=== PATIENT | female | born 1960 | race Caucasian/White ===

== ENCOUNTER 2019-02-17 17:41 | Emergency (ER) | payer MEDICAID ==
[~2019-02-17] VITALS: Ht 154.9 cm; Wt 64.9 kg
[2019-02-17 18:23] VITALS: BP 221/113
--- NOTE | 2019-02-17 19:00 | NUR ---
REPORT GIVEN BY ASHA CASTRO
[2019-02-17] MEDS: ENALAPRILAT 2.5 MG/2 ML VIAL IVP ONE (19:01)
--- NOTE | 2019-02-17 19:01 | NUR ---
X RAY AT BEDSIDE
--- NOTE | 2019-02-17 19:08 | NUR ---
pt bib self with c/o occipital left side pain x 3 days upon laying down sudden onset of dizziness today >15 episodes of emesis and dizziness. pain 10/10 at this time. high bp 212/108, md notified. administered meds as ordered,. pt connected to monitor. 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 er md to see the pt. will contiue to monitor . hx--htn, gastritis, frequent urination rx---benazepril 40mg , zantac 150mg, flomax 5mg
--- NOTE | 2019-02-17 19:10 | NUR ---
[facility]
[2019-02-17 19:19] LABS: BASOPHILS # (AUTO) 0.1 K/uL (0.00-0.22); EOSINOPHILS # (AUTO) 0.1 K/uL (0-0.4); EOSINOPHILS % (AUTO) 1.5 % (0.0-4.0); HEMATOCRIT 42.6 % (36-48); HEMOGLOBIN 14.3 g/dL (12.0-16.0); LYMPHOCYTES # (AUTO) 1.6 K/uL (2.5-16.5); LYMPHOCYTES % (AUTO) 29.6 % (20.5-51.1); MEAN CORPUSCULAR HEMOGLOBIN 28 pg (27-31); MEAN CORPUSCULAR HGB CONC 34 g/dL (33-37); MEAN CORPUSCULAR VOLUME 84.3 fL (80-94); MONOCYTES # (AUTO) 0.3 K/uL (0.8-1.0); MONOCYTES % (AUTO) 5.9 % (1.7-9.3); NEUTROPHILS # (AUTO) 3.3 K/uL (1.8-7.7); PLATELET COUNT (AUTO) 198 K/uL (140-450); RED BLOOD CELL COUNT(AUTO) 5.05 MIL/uL (4.20-5.40); RED CELL DISTRIBUTION WIDTH 14.2 % (11.6-13.7); WHITE BLOOD COUNT (AUTO) 5.3 K/uL (4.8-10.8)
[2019-02-17 19:27] LABS: PROTHROMBIN TIME 9.3 secs (10.8-13.4)
[2019-02-17 19:28] LABS: ANION GAP 11.6 (8-16); CARBON DIOXIDE 29.2 mmol/L (21-32); CREATININE 0.6 mg/dL (0.6-1.3); POTASSIUM 3.8 mmol/L (3.5-5.1)
[2019-02-17 19:33] LABS: APPEARANCE,URINE CLEAR (CLEAR); BILIRUBIN,URINE NEGATIVE (NEGATIVE); BLOOD, URINE TRACE-I (NEGATIVE); COLOR,URINE YELLOW (YELLOW); LEUKOCYTE ESTERASE ,URINE NEGATIVE (NEGATIVE); NITRITE, URINE NEGATIVE (NEGATIVE); PH,URINE 7.5 (5.0-9.0); UGLUCOSE NEGATIVE (NEGATIVE)
[2019-02-17 19:34] LABS: ALBUMIN 4.3 g/dL (3.4-5.0); TOTAL BILIRUBIN 0.4 mg/dL (0.0-1.0)
--- NOTE | 2019-02-17 19:50 | NUR ---
PT HAS NAUSEA AND VOMITING. ERMD MADE AWARE
[2019-02-17] MEDS: ONDANSETRON 4 MG/2 ML VIAL IVP ONE (20:07)
--- NOTE | 2019-02-17 20:20 | NUR ---
PT STATES "MY DIZZINESS AND N/V WENT AWAY"
--- NOTE | 2019-02-17 20:49 | NUR ---
ERMD AT BEDSIDE
[2019-02-17 21:10] VITALS: BP 175/94
--- NOTE | 2019-02-17 21:10 | NUR ---
Patient discharged with v/s stable. Written and verbal after care instructions given and explained. Patient alert, oriented and verbalized understanding of instructions. Ambulatory with steady gait. All questions addressed prior to discharge. ID band removed. Patient advised to follow up with PMD for follow up with HTN. Rx of MOTRIN AND ZOFRAN was given. Patient educated on indication of medication including possible reaction and side effects. Opportunity to ask questions provided and answered.
== END 2019-02-17 21:10 | disposition home or self-care (01) ==
LOC: MED 17:41
DX: M54.2 Cervicalgia (principal); R11.2 Nausea with vomiting, unspecified; I10 Essential (primary) hypertension; Z88.1 Allergy status to other antibiotic agents
CPT/HCPCS: 36415; 70450; 71045; 80053; 81003; 81025; 83880; 84484; 85025; 85610; 85730; 93005; 96374; 96375; 99284; J2405; J3490

== ENCOUNTER 2021-01-23 10:25 | Emergency (ER) | payer MEDICAID ==
[~2021-01-23] VITALS: Ht 160 cm; Wt 63.5 kg
[2021-01-23 10:31] VITALS: BP 151/90
--- NOTE | 2021-01-23 10:41 | NUR ---
Pt ambulated to bed 08.
--- NOTE | 2021-01-23 10:50 | NUR ---
EKG PERFORMED AT BEDSIDE. EKG READS SINUS RHYTHM @ 70
--- NOTE | 2021-01-23 10:53 | NUR ---
60 Y/O FEMALE BIB DAUGHTER C/O CHEST PAIN RADIATING TO LEFT ARM/NECK WITH NAUSEA X 4 DAYS. DENIES VOMTING. BP 151/90 AT THIS TIME. DENIES FEVER/CHILLS. PMH: GERD, HTN RX: LISINOPRIL, OMEPRAZOLE ALLERGIES: LEVOFLOXACIN
[2021-01-23] MEDS ORDERED: NITROGLYCERIN 0.4 MG TAB SL ONE (10:55)
[2021-01-23] MEDS ORDERED: ASPIRIN 325 MG TAB PO ONE (10:55)
--- NOTE | 2021-01-23 11:07 | NUR ---
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
--- NOTE | 2021-01-23 11:08 | NUR ---
1ST NITRO GIVEN BP 180/86 HR 76. WILL RE CHECK IN 5 MINUTES.
--- NOTE | 2021-01-23 11:13 | NUR ---
2ND NITRO GIVEN BP 142/82 HR 72. WILL RE CHECK IN 5 MINUTES.
[2021-01-23 11:15] LABS: BASOPHILS # (AUTO) 0.1 K/uL (0.00-0.22); BASOPHILS % (AUTO) 1.8 % (0.0-2.0); EOSINOPHILS # (AUTO) 0.1 K/uL (0-0.4); EOSINOPHILS % (AUTO) 2.9 % (0.0-4.0); HEMATOCRIT 40.2 % (36-48); HEMOGLOBIN 13.6 g/dL (12.0-16.0); LYMPHOCYTES # (AUTO) 2.3 K/uL (2.5-16.5); LYMPHOCYTES % (AUTO) 48.8 % (20.5-51.1); MEAN CORPUSCULAR HEMOGLOBIN 28 pg (27-31); MEAN CORPUSCULAR HGB CONC 34 g/dL (33-37); MEAN CORPUSCULAR VOLUME 81.7 fL (80-94); MONOCYTES # (AUTO) 0.4 K/uL (0.8-1.0); NEUTROPHILS # (AUTO) 1.8 K/uL (1.8-7.7); NEUTROPHILS % (AUTO) 38.5 % (42.2-75.2); PLATELET COUNT (AUTO) 196 K/uL (140-450); RED BLOOD CELL COUNT(AUTO) 4.92 MIL/uL (4.20-5.40); WHITE BLOOD COUNT (AUTO) 4.7 K/uL (4.8-10.8)
--- NOTE | 2021-01-23 11:18 | NUR ---
3RD NITRO GIVEN BP 144/84 HR 72. WILL RE CHECK IN 15 MINUTES.
[2021-01-23 11:29] LABS: ALBUMIN 3.9 g/dL (3.4-5.0); ANION GAP 8.3 (8-16); CARBON DIOXIDE 30.3 mmol/L (21-32); CREATININE 0.6 mg/dL (0.6-1.3); POTASSIUM 3.6 mmol/L (3.5-5.1); TOTAL BILIRUBIN 0.3 mg/dL (0.0-1.0)
--- NOTE | 2021-01-23 12:30 | NUR ---
SECOND EKG PERFORMED AT BEDSIDE. EKG READS SINUS RHYTHM @ 63
--- NOTE | 2021-01-23 12:39 | NUR ---
PT AMBULATED TO RESTROOM WITH A STEADY GAIT.
--- NOTE | 2021-01-23 13:28 | NUR ---
DEWAYNE 2ND TROPONIN AND WALKED TO LAB.
[2021-01-23] MEDS ORDERED: ASPI-1822 PO (13:49)
[2021-01-23 14:11] VITALS: BP 155/83
--- NOTE | 2021-01-23 14:12 | NUR ---
Patient discharged with v/s stable. Written and verbal after care instructions given CHEST PAIN OBSERVATION and explained. Patient alert, oriented and verbalized understanding of instructions. Ambulatory with steady gait. All questions addressed prior to discharge. ID band removed. Patient advised to follow up with PMD. Rx of ASPIRIN 81MG PO CHEWED DAILY given. Patient educated on indication of medication including possible reaction and side effects. Opportunity to ask questions provided and answered.
== END 2021-01-23 14:12 | disposition home or self-care (01) ==
LOC: MED 10:25
DX: R07.89 Other chest pain (principal); I10 Essential (primary) hypertension; Z79.82 Long term (current) use of aspirin; Z88.1 Allergy status to other antibiotic agents
CPT/HCPCS: 36415; 71045; 80053; 83880; 84484; 85025; 93005; 99285